=== PATIENT | male | born 1960 | race Caucasian/White ===

== ENCOUNTER → 2021-01-18 11:05 | Outpatient (BNVA) | payer MEDICARE, SELFPAY | PROVIDERS: Family Provider Nurse Practitioner Family; Visit Provider Nurse Practitioner Family | DX: C81.99 Hodgkin lymphoma, unspecified, extranodal and solid organ sites (principal); J30.89 Other allergic rhinitis; E55.9 Vitamin D deficiency, unspecified; Z12.5 Encounter for screening for malignant neoplasm of prostate; Z13.6 Encounter for screening for cardiovascular disorders; Z79.899 Other long term (current) drug therapy | CPT/HCPCS: 80053; 80061; 81003; 82306; 83036; 84443; 85025; G0103 ==

== ENCOUNTER 2021-02-02 08:30 | Outpatient (CLI) | payer MEDICARE, SELFPAY ==
--- NOTE | 2021-02-02 13:16 | ONC FU_ITS ---
Dr. Mcpherson follow up note Patient: Ramirez Parham Unit #: [id number]: 1960 Dicatated By: Luna Mcpherson M.D.Date of Visit:Feb 02, 2021 Onc Med Follow-up/Prog Note History of Present Illness: This is a 60 year-old man with non Hodgkin's lymphoma, specifically T-cell rich B-cell lymphoma, stage IVB. His history includes traumatic right tibial fracture in June 2013, at which time he had experienced several months of night sweats and weight loss. In December of 2013 he was admitted with MSSA septic knee arthritis and acute renal failure requiring removal of the prior hardware with debridement. During that admission, he was noted to have a progressive leukopenia with ANC 800, moderate anemia, and mild thrombocytopenia. His physical examination showed diffuse adenopathy and significant splenomegaly. A CT of the chest, abdomen, and pelvis on 12/19/2013 confirmed diffuse adenopathy in bilateral hilar, mediastinal, left supraclavicular, retroperitoneal, quoc hepatis, right iliac chain, and mesenteric adenopathy up to 4.7 cm. He had a massive splenomegaly at 25 cm in height and intrahepatic periportal edema without distinct lesions. He was first seen while inpatient. Bone marrow biopsy on showed 100% packed with mononuclear cells. The preliminary impression was Hodgkin's lymphoma versus T-cell rich B-cell lymphoma, but final impression was consistent with lymphocyte predominant Hodgkin's lymphoma. On 12/29/2013 he underwent a cervical mediastinoscopy. A level IV and level VII lymph nodes revealed nodular lymphocyte predominant Hodgkin's lymphoma, with a large neoplastic CD20 positive B cells in the background of T cells rosettes, follicular dendritic cells and numerous histiocytes. Neutrophils were only 4% of bone marrow cell differential, moderate reticulin fibrosis. He had unfavorable prognosis with a high IPS score of 6 due to decreased albumin, anemia, male gender, age, stage, and low lymphocyte count. Metabolically, he had an evidence of spontaneous tumor lysis and hypercalcemia. He received allopurinol and Rasburicase. He required pamidronate, renal function improved with creatinine 1.2 mg/dL. MUGA scan on 01/04/2014 with EF 54-55%. Port-A-Cath was placed. ESR 23. LDH increased to 245. Hepatitis screen was negative. Because of aggressive presentation, I did not recommend ABVD regimen. Instead, he received R- CHOP regimen for 6 cycles 01/07/14 - 05/09/14. With his first cycle, the neutrophils and platelet count improved. Restaging PET/CT after 3 cycles of chemotherapy on 03/12/14 showed a near-complete response with the only abnormality being FDG negative splenomegaly. Treatment continued despite of severe neutropenia, ANC 100. The repeat bone marrow biopsy on 04/13/1914 was hypercellular at 70%. There was no lymphomatous involvement. There was very limited dyserythropoiesis and megakaryocytic dyspoiesis. Iron was present but decreased. Flow cytometry was unrevealing. Cytogenetics and FISH panel MDS were normal. The etiology of the neutropenia remained unclear. The re-staging PET/CT after 6 cycles of R-CHOP regimen on 06/04/2014 showed FDG uptake in L2 vertebral body with SUV of 4.2, concerning for a reactivated malignancy. MRI of the L-spine on 06/15/2014 showed subtle changes in L2 vertebral body concerning for metastatic disease. He eventually underwent evaluation at [facility]. His original pathology was reviewed and changed into T-cell rich B-cell lymphoma. He underwent an L2 biopsy twice, consensus diagnosis was reactivated T-cell rich B cell lymphoma. Repeat PET/CT on 08/13/13 showed an additional focus developing in the right femur. He then received 3 cycles of salvage R-ICE regimen 09/12/14 - 10/31/14. His treatment was complicated with severe hematological toxicities, and sepsis with pneumonia. Restaging PET CT after 2 cycles showed complete response. The patient underwent autologous stem cells transplantation at [facility] in December 2014. Reportedly it was complicated with viral pneumonia, bacteremia, C. difficile colitis. PET/CT on 04/01/2015 showed complete response. INTERIM HISTORY: On 01/26/2016 he was found to have left lower lobe pneumonia, confirmed by chest x-ray. Repeat CT of the abdomen and pelvis on 01/30/2016 showed left lower lobe pneumonia, stable mild spleen enlargement at 14.5 cm and absent adenopathy. Echocardiogram showed borderline EF at 50%. He completed a course of antibiotics with Levaquin. At his followup visit with Dr. Howard on 02/09/2016 his fevers had defervesced, but he continued to cough quite a bit, and he continued to feel very tired. CT PET scan done in [place] on 03/28/2017.Showed no evidence of disease Came for follow-up, denies any specific complaints, no fever chills, no nausea or vomiting, no diarrhea constipation, no night sweats, no weight loss, no recurrent fever, no peripheral lymphadenopathy, no abdominal fullness, appetite is good overall feeling well. Patient lost follow-up since his last visit on December 24, 2019., As per patient he had CT scan of chest abdomen pelvis done in June 2018 and got report from his PMD and it was normal so he decided not to come back and tell him to go to [facility] for follow-up and now just decided to come back for follow-up but has no complaints or symptoms. Medications: Cetirizine HCl 1 (10 mg) Tablet Oral daily, multvitamin 1 Tablet daily, Paxil 1 (30 mg) Tablet Oral daily Allergies: PCN and Vancomycin HCl. Review of Systems: Review of Systems is not available for this patient. Vital Signs: Performed on Feb 02, 2021 09:00 Height - 69.00 in Weight - 219.8 lbs (HIGH) BSA - 2.15 sq.m BMI - 32.46 (HIGH) Temperature - 96.8 F (LOW) Pulse - 74 /min Respiration - 18 /min BP - 129/80 mm(hg) O2 Sat - 97 % Pain - 0 Fatigue - 0 Performance Status: 0 - Fully active, able to carry on all predisease activities without restrictions. (ECOG) Physical Examination: ENMT - No mouth sores, no thrush, no jaundice, no cervical or axillary lymphadenopathy, Respiratory - Lungs are clear to auscultation, Cardiovascular - Regular rate and rhythm of heart, Abdomen - Soft, bowel sounds present, Extremities - No visible edema. Lab/Imaging: Test performed on Jan 18, 2021 11:05 Cholesterol, Total 180 mg/dL Sodium 142 mmol/L TSH 2.19 uIU/mL Vitamin D (25-Hydroxy), Total 32 ng/mL Potassium 4.2 mmol/L Triglycerides 152 mg/dL Chloride 106 mmol/L LDL Cholesterol 119 mg/dL CO2 24 mmol/L Anion Gap 16.2 HDL Cholesterol 31 mg/dL BUN 14 mg/dL Cholesterol/HDL Ratio 5.81 Creatinine 1.1 mg/dL LDL / HDL Ratio 3.84 Cr Clearance (Est) 96.19 mL/min eGFR 68.1 mL/min Glucose 103 mg/dL Osmolality - Calculated 295 mOsm/kg Calcium 8.4 mg/dL Protein, Total 5.4 g/dL Albumin 4.4 g/dL Globulin 1.0 g/dL Bilirubin, Total 0.5 mg/dL ALT (SGPT) 20 Units/L AST (SGOT) 16 Units/L Alkaline Phosphatase 113 IU/L WBC 5.4 10^3/uL RBC 4.59 10^6/uL HGB 14.1 g/dL HCT 41.8 % MCV 91.1 fl MCH 30.7 pg MCHC 33.7 g/dL RDW 13.0 % Platelet Count 137 10^3/uL MPV 9.9 fl Neutrophils 3.49 10^3/uL Lymphocytes 1.3 10^3/uL Monocytes 0.5 10^3/uL Eosinophils 0.1 10^3/uL Basophils 0.0 10^3/uL Neutrophil % 64.1 % Lymphocyte % 23.3 % Monocyte % 9.2 % Eosinophil % 2.6 % Basophils % 0.4 % NRBC 0.0 /100 WBC NRBC % 0.0 % PSA 2.15 ng/mL Impression: 1. Patient with T cell rich B cell Lymphoma, stage IVB. He had diffuse adenopathy, massive splenomegaly and bone marrow involvement at diagnosis in December 2013 (initially thought to be Hodgkin's disease). He had significant baseline pancytopenia with severe neutropenia, hypercalcemia, spontaneous tumor lysis and renal failure on presentation. He had underlying baseline cyclic/ immune mediated neutropenia. 2. He received 6 cycles of R- CHOP chemotherapy, 01/07/14 - 05/09/14, with decrease in splenomegaly and normalization of the renal function. PET/ CT after 3 cycles on 03/12/14 showed near complete response, with residual FDG negative splenomegaly. Restaging PET/CT after 6 cycles of the treatment on 06/03/14 with focal re- activation of malignancy at L2 vertebral body. Repeat targeted biopsy of L2 lesion, showed recurrent T cell rich B cell lymphoma. 3. Salvage R-ICE for 3 cycles delivered 09/12/14 - 10/31/14. PET/CT with complete response after 2 cycles. 4. He then underwent an autologous stem cell transplantation with BEAM conditioning at [facility] on 12/29/14. Reportedly the procedure was complicated with viral pneumonia, bacteremia, and C. diff. colitis. Restaging PET/CT in March 2015 showed complete response. Recent restaging CT on 10/20/[address] abdomen/pelvis on 01/30/16 were without evidence of recurrence. CT PET scan done on 03/28/2017 at [facility] showed stable with no evidence of recurrence Mild thrombocytopenia etiology unclear Plan: Discussed with patient regarding his labs from January 18, 2021 white blood count 5.4 hemoglobin 14.1 hematocrit 41.8 platelets 137,000 with a normal differential CMP within normal limits Clinically, patient doing well with no B signs symptoms no other symptom suggestive of recurrence of disease, as follow-up labs CBC CMP is within normal range, on exam there is no evidence of peripheral lymphadenopathy or organomegaly , overall patient is feeling well, joint quality of life., Will monitor, he will return to clinic in 6 months with CBC CMP and LDH, patient was advised in case he has any new signs symptoms like recurrent fevers, unintentional weight loss, drenching night sweating, peripheral lymphadenopathy or abdominal fullness he need to call us otherwise return to clinic in 6 months and will also obtain his CT scan of chest abdomen pelvis done in June 2018 report and review Signed By: Lnua Mcpherson M.D. <<Signature on File>>
== END 2021-02-02 08:31 | disposition home or self-care (01) ==
LOC: ONCMED 08:33
PROVIDERS: Family Provider Nurse Practitioner Family; Visit Provider Internal Medicine Hematology & Oncology
DX: C83.30 Diffuse large B-cell lymphoma, unspecified site (principal)
CPT/HCPCS: 99214

== ENCOUNTER → 2021-08-13 14:15 | Outpatient (BNVA) | payer MEDICARE, SELFPAY | PROVIDERS: Family Provider Nurse Practitioner Family; PCP Nurse Practitioner Family; Visit Provider Family Medicine | DX: J22 Unspecified acute lower respiratory infection (principal) | CPT/HCPCS: 87400; 87635 ==

== ENCOUNTER 2022-02-08 07:48 | Oncology outpatient (recurring) (ONCR) | payer MEDICARE, SELFPAY ==
[2022-02-08 08:10] LABS: Eosinophils # 0.2 10^3/uL (0.0-0.8); Monocytes # 0.5 10^3/uL (0.2-0.9); Nucleated Red Blood Cells % 0 %
[2022-02-08 08:11] LABS: Basophils % 0.3 %; Eosinophils % 2.8 %; Hemoglobin 15.8 g/dL (11.7-16.6); Lymphocytes # 1.6 10^3/uL (0.8-4.8); Lymphocytes % 26.3 %; Mean Corpuscular HGB Conc 35.1 g/dL (30.0-36.0); Mean Corpuscular Hemoglobin 30.4 pg (28.0-34.0); Mean Corpuscular Volume 86.5 fl (80-94); Mean Platelet Volume 9.2 fL (7.4-10.4); Monocytes % 8.6 %; Neutrophils # 3.75 10^3/uL (1.8-7.7); Neutrophils % 61.7 %; Platelet Count 137 10^3/cmm (130-400); Red Cell Distribution Width 12.8 % (12.1-15.1); White Blood Count 6.1 10^3/uL (4.0-10.0)
[2022-02-08 08:25] LABS: Alanine Aminotransferase 24 U/L (0-41); Albumin Level 4.7 g/dL (3.5-5.2); Alkaline Phosphatase 109 IU/L (40-130); Anion Gap 14.1 (5-19); Aspartate Amino Transferase 19 U/L (0-40); Blood Urea Nitrogen 25 mg/dL (8-23); Carbon Dioxide 25 mmol/L (22-29); Chloride 103 mmol/L (98-107); Globulin 1.8 g/dL (1.3-4.6); Glomerular Filtration Rate 55.8 mL/min (90-130); Glucose 120 mg/dL (65-115); Lactate Dehydrogenase 190 U/L (135-225); Osmolality Calculated 292 mOsm/kg (285-295); Potassium 4.1 mmol/L (3.5-5.1); Sodium 138 mmol/L (136-145); Total Bilirubin 0.5 mg/dL (0.15-1.2); Total Protein 6.5 g/dL (6.6-8.7)
== END 2022-03-10 23:59 | disposition home or self-care (01) ==
LOC: ONCMED 07:50
PROVIDERS: PCP Nurse Practitioner Family; Visit Provider Internal Medicine Hematology & Oncology
DX: Z08 Encounter for follow-up examination after completed treatment for malignant neoplasm (principal); Z85.72 Personal history of non-Hodgkin lymphomas; Z92.21 Personal history of antineoplastic chemotherapy; Z92.3 Personal history of irradiation
CPT/HCPCS: 36415; 80053; 83615; 85025; G0463

== ENCOUNTER 2022-08-16 08:17 | Oncology outpatient (recurring) (ONCR) | payer MEDICARE, SELFPAY ==
[2022-08-16 08:40] LABS: Basophils % 0.7 %; Eosinophils # 0.1 10^3/uL (0.0-0.8); Hematocrit 46.8 % (42.0-52.0); Hemoglobin 15.5 g/dL (11.7-16.6); Lymphocytes # 1.4 10^3/uL (0.8-4.8); Lymphocytes % 24.2 %; Mean Corpuscular HGB Conc 33.1 g/dL (30.0-36.0); Mean Corpuscular Hemoglobin 29.9 pg (28.0-34.0); Mean Corpuscular Volume 90.2 fl (80-94); Mean Platelet Volume 8.7 fL (7.4-10.4); Monocytes # 0.5 10^3/uL (0.2-0.9); Monocytes % 8.2 %; Neutrophils # 3.75 10^3/uL (1.8-7.7); Neutrophils % 63.9 %; Nucleated Red Blood Cells % 0 %; Platelet Count 152 10^3/cmm (130-400); Red Blood Count 5.19 10^6/uL (4.1-5.3); Red Cell Distribution Width 12.7 % (12.1-15.1); White Blood Count 5.9 10^3/uL (4.0-10.0)
[2022-08-16 09:09] LABS: Alanine Aminotransferase 28 U/L (0-41); Albumin Level 4.7 g/dL (3.5-5.2); Alkaline Phosphatase 122 U/L (40-130); Anion Gap 12.5 (5-19); Aspartate Amino Transferase 18 U/L (0-40); Blood Urea Nitrogen 19 mg/dL (8-23); Carbon Dioxide 26 mmol/L (22-29); Chloride 103 mmol/L (98-107); Globulin 1.7 g/dL (1.3-4.6); Glomerular Filtration Rate 61.1 mL/min (90-130); Glucose 137 mg/dL (65-115); Lactate Dehydrogenase 188 U/L (135-225); Osmolality Calculated 288 mOsm/kg (285-295); Potassium 4.5 mmol/L (3.5-5.1); Sodium 137 mmol/L (136-145); Total Bilirubin 0.4 mg/dL (0.15-1.2); Total Protein 6.4 g/dL (6.6-8.7)
== END 2022-09-10 23:59 | disposition home or self-care (01) ==
PROVIDERS: PCP Nurse Practitioner Family; Visit Provider Internal Medicine Hematology & Oncology
DX: C85.10 Unspecified B-cell lymphoma, unspecified site (principal); Z92.21 Personal history of antineoplastic chemotherapy
CPT/HCPCS: 36415; 80053; 83615; 85025; 99214

== ENCOUNTER → 2022-09-24 10:09 | Outpatient (BNVA) | payer MEDICARE, SELFPAY | PROVIDERS: PCP Nurse Practitioner Family; Visit Provider Nurse Practitioner | DX: J40 Bronchitis, not specified as acute or chronic (principal); J34.89 Other specified disorders of nose and nasal sinuses | CPT/HCPCS: 71046 ==

== ENCOUNTER 2023-08-28 11:03 | Outpatient (CLI) | payer MEDICARE, SELFPAY ==
--- NOTE | 2023-08-28 12:00 | CT_ITS ---
WS: [id number] CT CHEST, ABDOMEN AND PELVIS WITH CONTRAST HISTORY: Follow-up lymphoma. TECHNIQUE: Contiguous 5 mm axial imaging performed through the chest, abdomen and pelvis with IV cont rast, oral contrast has been provided. Coronal and sagittal reformats chest. Coronal and sagittal ref ormats through the abdomen and pelvis. All CT scans at [facility] use at least one of these d ose optimization techniques: automated exposure control; mA and/or kV adjustment per patient size (in cludes targeted exams where dose is matched to clinical indication); or iterative reconstruction. CONTRAST: Omnipaque 350; 100 mL IV. DLP: 1283.16 mGy.cm COMPARISON: 06/18/[address]: Increase in size and number of the mediastinal and hilar lymph nodes since 06/18/2018. There is a new 0.9 cm lymph node inferior LEFT neck. Previously described lymph nodes at the hilar regions have increased in size. The largest hina complex 3.0 x 1.7 cm at the RIGHT hilum. There is a interl obar lymph node with a maximum diameter of 1.8 cm. LEFT hilar lymph node measures 1.8 x 1.5 cm. Incre asing hina burden adjacent to the inferior LEFT paratracheal region and LEFT hilum. Smaller subcarin al lymph nodes. Lungs are clear. No pneumonia. No mass or nodule. No pericardial or pleural effusions. There is incre ased soft tissue over the LEFT atrium but this is probably due to admixing of blood and contrast. Thi s does not persist on the more delayed imaging through the lower thorax. Abdomen CT: Normal liver and spleen. Spleen measures 12.8 cm in length. Normal portal vein and gallbl adder. No adrenal mass. Normal pancreas. No renal obstruction. Simple RIGHT renal cyst 5.3 x 6.2 cm f rom the lower pole. Stomach is well distended. No small bowel obstruction. Moderate constipation. There are few scattered distal colonic diverticula. New 1.4 cm lymph node near the lesser curvature of the stomach. Precaval lymph node 1.7 cm has increa sed in size. There are a few additional small central mesenteric and retroperitoneal lymph nodes whic h are less than a centimeter. Pelvic CT: No free fluid in the pelvis. No adenopathy. Nondistended urinary bladder. There is diffuse wall thickening which is likely due to under distention or mild outlet obstruction. 6 mm sclerotic focus in the LEFT sacrum has slightly increased in size. RIGHT lateral sclerotic focus in L3 has increased in size. IMPRESSION: 1. Increase in size and number of the mediastinal and hilar lymph nodes since 06/18/2018. The largest lymph node cluster at the RIGHT hilum measures 3.0 x 1.7 cm. 2. New 1.4 cm lymph node at the lesser curve at the summer and precaval lymph node measuring 1.7 cm. 3. Reevaluate for possible recurrent lymphoma. 4. No splenomegaly. 5. No adrenal or hepatic lesions. 6. Small sclerotic foci in the LEFT sacrum and L3 have slightly increased in size since 2018. The si gnificance of this is uncertain. May be mild enlargement of small bone islands.
[2023-08-28 12:28] LABS: Blood Urea Nitrogen 19 mg/dL (8-23); Glomerular Filtration Rate 38.2 mL/min (90-130)
[2023-08-28] MEDS: iohexol 350 mg/mL 500 mL Btl (per mL) PO (12:31)
[2023-08-28] MEDS: iohexol 350 mg/mL 500 mL Btl (per mL) IV (12:39)
== END 2023-08-28 11:04 | disposition home or self-care (01) ==
LOC: RAD 11:03
PROVIDERS: PCP Nurse Practitioner Family; Visit Provider Nurse Practitioner Family
DX: C85.10 Unspecified B-cell lymphoma, unspecified site (principal); M89.9 Disorder of bone, unspecified
CPT/HCPCS: 71260; 74177; 82565; 84520; Q9967

== ENCOUNTER 2023-09-08 08:42 | Oncology outpatient (recurring) (ONCR) | payer MEDICARE, SELFPAY ==
[2023-09-08 09:23] VITALS: BP 131/74; PULSE 68; TEMP 36.2; O2SAT 95
[2023-09-08 09:31] LABS: Basophils % 0.4 %; Eosinophils # 0.1 10^3/uL (0.0-0.8); Eosinophils % 2.4 %; Hematocrit 43.9 % (37-53); Lymphocytes # 1.5 10^3/uL (0.8-4.8); Lymphocytes % 27.5 %; Mean Corpuscular HGB Conc 34.6 g/dL (30-55); Mean Corpuscular Hemoglobin 30.4 pg (27-33); Mean Corpuscular Volume 87.8 fl (82-101); Monocytes # 0.4 10^3/uL (0.2-0.9); Monocytes % 8.1 %; Neutrophils # 3.25 10^3/uL (1.8-7.7); Neutrophils % 61.2 %; Nucleated Red Blood Cells % 0 %; Platelet Count 140 10^3/cmm (157-399); Red Cell Distribution Width 12.9 % (12.1-15.1); White Blood Count 5.31 10^3/uL (3.29-11.43)
[2023-09-08 09:52] LABS: Alanine Aminotransferase 28 U/L (0-41); Albumin Level 4.2 g/dL (3.5-5.2); Alkaline Phosphatase 114 U/L (40-130); Anion Gap 15.1 (5-19); Aspartate Amino Transferase 23 U/L (0-40); Blood Urea Nitrogen 21 mg/dL (8-23); Calcium 9.2 mg/dL (8.5-10.5); Carbon Dioxide 24 mmol/L (22-29); Chloride 104 mmol/L (98-107); Glucose 122 mg/dL (65-115); Lactate Dehydrogenase 190 U/L (135-225); Osmolality Calculated 292 mOsm/kg (285-295); Potassium 4.1 mmol/L (3.5-5.1); Sodium 139 mmol/L (136-145); Total Bilirubin 0.4 mg/dL (0.15-1.2); Total Protein 6.2 g/dL (6.6-8.7)
== END 2023-09-10 23:59 | disposition home or self-care (01) ==
PROVIDERS: Internal Medicine Medical Oncology; PCP Nurse Practitioner Family; Visit Provider Internal Medicine Hematology & Oncology
DX: C85.10 Unspecified B-cell lymphoma, unspecified site (principal); Z92.21 Personal history of antineoplastic chemotherapy
CPT/HCPCS: 36415; 80053; 83615; 85025; 99214

== ENCOUNTER → 2023-10-13 16:08 | Outpatient (BNVA) | payer MEDICARE, SELFPAY | PROVIDERS: PCP Nurse Practitioner Family; Visit Provider Internal Medicine Pulmonary Disease | DX: R06.02 Shortness of breath; R59.0 Localized enlarged lymph nodes; R06.09 Other forms of dyspnea; C81.99 Hodgkin lymphoma, unspecified, extranodal and solid organ sites | CPT/HCPCS: 36415; 82785; 86003; 99204 ==

== ENCOUNTER 2023-10-21 07:15 | Day surgery (SDC) | payer MEDICARE, SELFPAY ==
[2023-10-21] VITALS (10 sets, daily range): BP systolic 116–143; BP diastolic 59–88; PULSE 71–87; RESP 16–18; TEMP 36.1–36.2; O2SAT 92–97; BMI 27.2
[2023-10-21] MEDS: sodium chloride 0.9% 1,000 ML 30 ML IV (07:31)
--- NOTE | 2023-10-21 08:03 | ANES.PREANE2 ---
Pre-Anesthetic Assessment Height/Weight: Height 1.78 m Weight 86.183 kg Temp Pulse Resp BP Pulse Ox O2 Del Method 97 F L 75 16 116/76 97 Room Air 10/21/23 07:26 10/21/23 07:26 10/21/23 07:26 10/21/23 07:26 10/21/23 07:26 10/21/23 07:26 Operation Date: 10/21/23 09:00 Proposed Procedures p BRONCH, EBUS, 29444, 23647, 14834, 47632, 27769, 58181, 91837, 68484, 29456 R59.0(Not Applicable) - Caleb Malik MD s Ebus(Not Applicable) - Caleb TeixeirarMD Familial anesthetic complications: None Was Beta Rocael taken within 24 hours: N/A Was Clonidine taken within 24 hours: N/A Last intake: Intake Last Liquid Date 10/20/23 Last Liquid Time 23:30 Last Solid Date 10/20/23 Last Solid Time 18:00 Social No alcohol and No tobacco Exam alert, oriented x 3, clear to auscultation bilaterally and regular rate & rhythm Airway Mallampati: Class IV Dentition: false Musc/skel Non-hodgkin's lymphoma Anesthetic Plan ASA status: 3 Anesthesia: General Risk of > 500 ml blood loss (7ml/kg in children): No Medications/Allergies Home Medications Medication Instructions Recorded Confirmed Last Taken Type ascorbic acid (vitamin C) 500 mg 500 mg PO DAILY 02/08/22 10/21/23 10/21/23 History capsule zinc 50 mg tablet 50 mg PO DAILY 02/08/22 10/21/23 10/21/23 History sildenafil 50 mg tablet (Viagra) 50 mg PO DAILY PRN sexual activity 08/13/23 10/16/23 3 Weeks Ago Rx #7 tabs ~09/25/23 albuterol sulfate 90 mcg/actuation 2 puff inhalation Q4H PRN 10/13/23 10/16/23 Unknown Rx aerosol inhaler (ProAir HFA) shortness of breath or wheezing #8.5 grams budesonide-formoterol HFA 80 2 puff inhalation BID #10.2 grams 10/13/23 10/16/23 Unknown Rx mcg-4.5 mcg/actuation aerosol inhaler (Symbicort) omega-3 fatty acids 1,000 mg PO DAILY 10/16/23 10/21/23 10/21/23 History paroxetine HCl 30 mg tablet 30 mg PO DAILY 10/16/23 10/21/23 10/21/23 History vitamin B complex 1 tab PO DAILY 10/16/23 10/21/23 10/21/23 History Allergies Allergy/AdvReac Type Severity Reaction Status Date / Time Penicillins Allergy Severe rash Verified 10/13/23 15:07 Current Medications Generic Name Dose Route Start Last Admin Trade Name Chester PRN Reason Stop Dose Admin Sodium Chloride 1,000 mls @ 30 mls/hr 10/21/23 07:30 10/21/23 07:31 Sodium Chloride 0.9% IV 10/22/23 07:29 30 mls/hr .Q24H THELMA Administration PFSH Anesthesia Medical History History of septic arthritis Erectile dysfunction Anxiety B-cell lymphoma Vitamin D deficiency H/O tularemia Environmental and seasonal allergies Depression Surgical History S/P ORIF (open reduction internal fixation) fracture ORIF Rt Tibial Plateau Family History Other Cancer Lung disease Denies family history of Diabetes CAD (coronary artery disease) Clotting disorder Dementia Hyperlipidemia Psychiatric illness Chronic kidney disease (CKD) Suicide Anesthesia complication Bleeding disorder Hypertension Stroke Social History Smoking and tobacco/nicotine status: never used tobacco/nicotine Second hand smoke exposure: No Substance/Drug Use: never Data Anesthesia Cardiac Studies: No Data to Display
--- NOTE | 2023-10-21 08:38 | W.PM.OPSUD ---
Surgery/Procedure H&P Update DATE OF PROCEDURE: October 21, 2023 DATE H&P PERFORMED: 10/13/23 H&P UPDATE INFORMATION: I have reviewed H&P completed within last 30 days, I have examined patient prior to procedure and No changes to prior documentation CHANGES TO PREVIOUS DOCUMENTATION: none PREOP DIAGNOSIS: pet active lymphnodes rule out recurrence of lymphoma PRIMARY INDICATION FOR PROCEDURE: pet active lymphnodes rule out recurrence of lymphoma PLANNED PROCEDURE: Operation Date: 10/21/23 09:00 Proposed Procedures p BRONCH, EBUS, 75255, 03613, 61839, 42847, 92134, 85904, 80537, 99180, 52706 R59.0(Not Applicable) - Caleb Malik MD s Ebus(Not Applicable) - Caleb Malik MD
[2023-10-21 09:28] LABS: Apprearance, Bronch Wash Cloudy (CLEAR); Color, Bronc Wash Colorless; Cyto Order Verification Order Verified
[2023-10-21 10:28] LABS: PATH Referral Yes; Total Cells Counted Bronch 200
--- NOTE | 2023-10-21 10:40 | P.OP_ITS ---
Operative Report Date of procedure: October 21, 2023 Surgeon: Caleb Malik MD Brief History: Mr. Ramirez Parham is a 63-year-old male with past medical history of T-cell rich B-cell lymphoma, stage IV. referred by Sukhdeep for ?? recurrence of Hodgkin lymphoma. Patient was diagnosed with Hodgkin's lymphoma he completed 6 cycles from 01/07/2014 through 05/09/2014. His restaging PET/CT after 3 cycles had shown a near complete response. He then underwent evaluation at [facility], at which point review of pathology was felt to be consistent with T-cell rich B- cell lymphoma. Biopsy of the L2 vertebral body showed reactivated T-cell rich B-cell lymphoma. His further treatment included 3 cycles of R-ICE salvage chemotherapy, completed in October 2014 followed by autologous stem cell transplant in December 2014. His restaging PET/CT on 04/01/2015 showed complete response. He then continued expectant management. As of his follow-up visit here in August 2022 there had been no evidence of recurrence of the lymphoma. Since 2014-he appears to be doing well clinically. However, as his recent surveillance CT scans 09/07/2023 showed some increase in mediastinal/hilar adenopathy and there also was a slight increase in several sclerotic bone lesions. He underwent PET CT scan on 10/01/2023 which showed nonspecific activity in multiple lymph nodes involving the neck, chest and retroperitoneum with SUV maximum in the LV hilum 4.4 and in the right hilum 4.83. Maximal activity mediastinal 3.96. There is low-level activity azygoesophageal recess. Oncology discussed with interventional radiology-however all these lesions are difficult to access through interventional radiology. Hence patient is referred to pulmonary service for possible endobronchial ultrasound-guided hilar/mediastinal lymph nodes to rule out recurrence of low- grade lymphoma. Today patient is scheduled for endobronchial ultrasound-guided biopsies of hilar/mediastinal active lymph nodes. Procedure: Procedure: Dx Bronchoscope w/BAL Bronchoscopy w/ therapeutic aspiration of the tracheobronchial tree (clearance of airway secretions, removal of mucus plugs) EBUS Sampling >3 nodes Indication: PET active mediastinal/hilar lymph nodes-rule out Malignancy Anesthesia: General anesthesia. Local anesthesia: The jeremy in the right and left mainstem bronchi were anesthetized with 1% lidocaine, 3 mL. Description of the procedure: The procedure was explained to the patient and the consent was obtained. The patient was brought to the OR. The patient underwent induction for general anesthesia and endotracheal tube was placed. The bronchoscope was advanced through the ET tube into the trachea. Tracheal mucosa appeared normal, no endotracheal lesion was seen. The jeremy was sharp. 1 mL each of 1% lidocaine was instilled in the trachea the right and left mainstem bronchi for local anesthesia. There were thick mucus secretions which were suctioned right away. In a systematic manner bilateral bronchial tree was then examined. The bronchoscope was then introduced into the right mainstem bronchus. The right upper lobe, right middle lobe and right lower lobe bronchi were examined up to the third subsegmental level and no abnormalities were identified. The mucosa appeared normal with no endobronchial lesions, active bleeding or mucous plugs.There were Mucous secretions which were suctioned right away. The bronchoscope was advanced into the left mainstem bronchus. The left upper lobe, and lingula were examined up to the third subsegmental level and no abnormalities were identified. Mucosa of left side tracheal bronchial tree appeared normal with no endobronchial lesion. There were clear secretions which were suctioned right away. Bronchoalveolar lavage was taken from right middle lobe. Bronchoscope was retracted and linear endobronchial Ultrasound (EBUS) was introduced. An EBUS exam[[id number] vs [id number]] was performed: - Stations 4L, 11 L, 7, 11 R were enlarged > 5mm and sampled in that order. - Stations 4R, 10 R, 10 L were also scanned but <5mm and thus did not meet criteria for sampling. Level 4L station was identified with the EBUS scope at the lateral LMSB and 4 passes were made using a 19 G Olympus TBNA needle. Level 11L station was identified with the EBUS scope at the LLL/L hilum and 4 passes were made using a 19 G Olympus TBNA needle. Level 7 station was identified with the EBUS scope at the medial LMSB/RMSB and 4 passes were made using a 19 G Olympus TBNA needle. Level 11R station was identified with the EBUS scope at the RBI/R hilum and 4 passes were made using a 19 G Olympus TBNA needle. Additional samples were taken from the above lymph nodes and collected into RPMI media as ``mediastinal lymph nodes?? for consideration of lymphoma Rapid onsite path evaluation (IDALIA) was not utilized for this case. Following completion of all diagnostic and therapeutic procedures, hemostasis was verified. The scope was removed and procedure concluded. Samples: 1. Bronchoalveolar lavage was performed after wedging the bronchoscope into the medial segment of right middle lobe. 30 mL of saline was instilled, fluid return was 13 mL. Bronchoalveolar lavage specimen was sent for cell count and differential, gram stain and culture, cytology, fungal culture B. EBUS guided Fine-needle aspiration biopsies were taken from station 4L, station 11 L, station 7 and station 11. 1. Total of 4 passes were made using needle aspiration from station 4L; material was placed in formalin; 2 passes in RPMI 2. Total of 4 passes were made using needle aspiration from station 11 L; material was placed in formalin; 2 passes in RPMI 3. Total of 4 passes were made using needle aspiration from station 7; material was placed in formalin, 2 passes were placed in RPMI 4. Total of 4 passes were made using needle aspiration from station 11 R: all the material was placed in formalin and sent for histopathology Complications: None.The patient was extubated and brought to the PACU in stable condition. Disposition: Patient can be discharged home in stable condition. Pt is aware that I am going to call them to update final biopsy results once available. Related Problem List Diagnoses (1) Hodgkin lymphoma of extranodal or solid organ site: (2) Hilar adenopathy:
[2023-10-21] MEDS: lidocaine 1% INJ 10 mL (per mL) XX (10:41)
--- NOTE | 2023-10-21 11:16 | XRR_ITS ---
PROCEDURE INFORMATION: Exam: XR Chest Exam date and time: 10/21/2023 10:26 AM Age: 63 years old Clinical indication: Cough; Prior surgery; Surgery date: Post-operative (0-2 days); Surgery type: Bronch; Additional info: Post ebus, in gi lab pre room 1 TECHNIQUE: Imaging protocol: Radiologic exam of the chest. Views: 1 view. COMPARISON: CT chest abdpel w/*[id number] 08/28/2023 12:35 PM FINDINGS: Lungs: Unremarkable. No consolidation. Pleural spaces: Unremarkable. No pleural effusion. No pneumothorax. Heart/Mediastinum: The heart size is not well assessed. Bones/joints: Unremarkable. XR/XR chest 1V portable [id number] IMPRESSION: No evidence of acute pulmonary process.
--- NOTE | 2023-10-21 11:45 | ANE.PACU2 ---
Inpatient post-anesthesia follow up: Airway intact: Yes Vital signs: Temperature 97.2 F Pulse Rate 72 Respiratory Rate 18 Blood Pressure 125/75 Pulse Oximetry 94 Oxygen Delivery Me thod Room Air Oxygen Flow Rate Fraction of Inspir ed Oxygen Hydration adequate: Yes Nausea and vomiting: No Pain level: 1 Mental status: Baseline
[2023-10-22 15:20] LABS: Lymphoma Profile (BBPL) See Report
== END 2023-10-21 11:48 | disposition home or self-care (01) ==
PROVIDERS: PCP Nurse Practitioner Family; Visit Provider Internal Medicine Pulmonary Disease
PROC: 0BJ08ZZ Inspection of Tracheobronchial Tree, Via Natural or Artificial Opening Endoscopic (ICD-10-PCS; CPT 31622; principal; 2023-10-21 09:00)
PROC: BB4BZZZ Ultrasonography of Pleura (ICD-10-PCS; 2023-10-21 09:00)
DX: R59.0 Localized enlarged lymph nodes (principal); R06.09 Other forms of dyspnea; C81.99 Hodgkin lymphoma, unspecified, extranodal and solid organ sites
CPT/HCPCS: 31624; 31645; 31653; 71045; 80503; 87070; 87102; 87176; 87205; 87206; 88112; 88184; 88185; 88305; 88342; 89050; J1100; J2405; J2704; J2710; J3010; J3490; J7030

== ENCOUNTER 2023-11-18 06:34 | Outpatient (CLI) | payer MEDICARE, SELFPAY | END 2023-11-18 06:35 | disposition home or self-care (01) | LOC: RT 06:34 | PROVIDERS: PCP Nurse Practitioner Family; Visit Provider Internal Medicine Pulmonary Disease | DX: R06.02 Shortness of breath (principal) | CPT/HCPCS: 94060; 94618; 94726; 94729 ==

== ENCOUNTER 2024-01-30 06:43 | Oncology outpatient (recurring) (ONCR) | payer MEDICARE, SELFPAY ==
--- NOTE | 2024-01-30 08:00 | CTR_ITS ---
PROCEDURE INFORMATION: Exam: CT Chest With Contrast; Diagnostic Exam date and time: 01/30/2024 9:14 AM Age: 63 years old Clinical indication: Condition or disease; Prior surgery; Surgery date: 6+ months; Surgery type: RT leg; Patient HX: B-cell lymphoma chemo ending approx 2018 TECHNIQUE: Imaging protocol: Diagnostic computed tomography of the chest with contrast. Radiation optimization: All CT scans at this facility use at least one of these dose optimization techniques: automated exposure control; mA and/or kV adjustment per patient size (includes targeted exams where dose is matched to clinical indication); or iterative reconstruction. Contrast material: OMNI 350; Contrast volume: 95 ml; Contrast route: INTRAVENOUS (IV); COMPARISON: CT chest abdpel w/*[id number] 08/28/2023 12:35 PM RADIATION DOSE METRICS: Total DLP (mGy-cm): 1221.98 FINDINGS: Lungs: There are calcified granulomas in the right middle and lower lobes of the lung. No lung mass or significant consolidation. Pleural spaces: Unremarkable. No pneumothorax. No pleural effusion. Heart: Unremarkable. No cardiomegaly. No pericardial effusion. Mediastinal space: There is subcarinal mediastinal calcification. Lymph nodes: There is right paratracheal mediastinal adenopathy measuring 1.1 cm in short axis diameter (series 3, image 23), AP window mediastinal adenopathy measuring 1.6 cm on image 22, left thoracic hilar adenopathy measuring 1.3 cm on image 23, left thoracic hilar adenopathy measuring 1.2 cm on image 27 and right thoracic hilar adenopathy measuring 1.9 cm on image 28. These are unchanged. No significant new areas of adenopathy. Vasculature: Unremarkable. No aortic aneurysm. Bones/joints: Degenerative change is identified in the spine. There is no evidence for acute fracture or malalignment. Soft tissues: Unremarkable. PROCEDURE INFORMATION: Exam: CT Abdomen And Pelvis With Contrast Exam date and time: 01/30/2024 9:14 AM Age: 63 years old Clinical indication: Condition or disease; Prior surgery; Surgery date: 6+ months; Surgery type: RT leg; Patient HX: B-cell lymphoma chemo ending approx 2018 TECHNIQUE: Imaging protocol: Computed tomography of the abdomen and pelvis with contrast. Radiation optimization: All CT scans at this facility use at least one of these dose optimization techniques: automated exposure control; mA and/or kV adjustment per patient size (includes targeted exams where dose is matched to clinical indication); or iterative reconstruction. Contrast material: OMNI 350; Contrast volume: 95 ml; Contrast route: INTRAVENOUS (IV); COMPARISON: CT chest abdpel w/*[id number] 08/28/2023 12:35 PM RADIATION DOSE METRICS: Total DLP (mGy-cm): 1221.98 FINDINGS: Liver: Normal. No mass. Gallbladder and biliary ducts: Normal. No calcified stones. No ductal dilation. Pancreas: Normal. No ductal dilation. Spleen: Normal. No splenomegaly. Adrenal glands: Normal. No mass. Kidneys and ureters: There is a 6.8 cm cyst in the inferior right kidney. No renal calcification or hydronephrosis. Stomach and bowel: Colonic diverticula are present although there are no CT findings to suggest diverticulitis. No bowel obstruction. Appendix: No evidence of appendicitis. Intraperitoneal space: Unremarkable. No free air. No significant fluid collection. Vasculature: There is vascular atherosclerotic calcification. No aneurysm. Lymph nodes: There are subcentimeter aortocaval retroperitoneal lymph nodes which are unchanged. There is a lymph node along the gastrohepatic ligament with a short axis diameter of 1.6 cm which is unchanged. Urinary bladder: There is mild bladder wall thickening which is unchanged. No bladder emphysema or calcification. Reproductive: Unremarkable as visualized. Bones/joints: Unremarkable. No acute fracture. Soft tissues: Unremarkable. CT/CT chest abdpe w/*[id number] IMPRESSION: There are intrathoracic lymph nodes which are unchanged when compared with 08/28/2023. IMPRESSION: There are lymph nodes along the lesser curvature of the stomach and also in the retroperitoneum which are unchanged when compared with 08/28/2023. COMMENTS: Consistent with the [employer]'s Incidental Findings Committee white paper (J Am Anival Radiol 2018): Any incidental renal lesion less than 1 cm or classified as too small to characterize, or any incidental cystic renal lesion characterized as simple-appearing, is likely benign. No follow-up imaging is recommended for these lesions per consensus recommendations based on imaging criteria.
[2024-01-30 08:27] LABS: Blood Urea Nitrogen 12 mg/dL (8-23)
[2024-01-30] MEDS: iohexol 350 mg/mL 500 mL Btl (per mL) PO (09:19)
[2024-01-30] MEDS: iohexol 350 mg/mL 500 mL Btl (per mL) IV (09:20)
== END 2024-02-08 23:59 | disposition home or self-care (01) ==
LOC: RAD 06:43 → ONCMED 02-24 07:22
PROVIDERS: Internal Medicine Medical Oncology; PCP Nurse Practitioner Family; Visit Provider Nurse Practitioner Family
DX: C85.10 Unspecified B-cell lymphoma, unspecified site (principal); C81.99 Hodgkin lymphoma, unspecified, extranodal and solid organ sites
CPT/HCPCS: 36415; 71260; 74177; 82565; 84520; Q9967

== ENCOUNTER 2024-04-02 07:29 | Oncology outpatient (recurring) (ONCR) | payer MEDICARE, SELFPAY ==
[2024-04-02 07:58] LABS: Basophils % 0.6 %; Eosinophils # 0.1 10^3/uL (0.0-0.8); Eosinophils % 1.8 %; Hematocrit 42.5 % (37-53); Lymphocytes # 1.5 10^3/uL (0.8-4.8); Lymphocytes % 30.3 %; Mean Corpuscular HGB Conc 35.1 g/dL (30-55); Mean Corpuscular Hemoglobin 30.3 pg (27-33); Mean Corpuscular Volume 86.6 fl (82-101); Mean Platelet Volume 9.1 fL (7.4-10.4); Monocytes # 0.4 10^3/uL (0.2-0.9); Monocytes % 7.9 %; Neutrophils # 2.99 10^3/uL (1.8-7.7); Neutrophils % 59.2 %; Nucleated Red Blood Cells % 0 %; Platelet Count 150 10^3/cmm (157-399); Red Blood Count 4.91 10^6/uL (3.85-5.65); Red Cell Distribution Width 12.7 % (12.1-15.1); White Blood Count 5.05 10^3/uL (3.29-11.43)
[2024-04-02 08:32] LABS: Alanine Aminotransferase 29 U/L (0-41); Albumin Level 4.4 g/dL (3.5-5.2); Alkaline Phosphatase 107 U/L (40-130); Anion Gap 14.9 (5-19); Aspartate Amino Transferase 24 U/L (0-40); Blood Urea Nitrogen 17 mg/dL (8-23); Calcium 8.8 mg/dL (8.5-10.5); Carbon Dioxide 22 mmol/L (22-29); Chloride 107 mmol/L (98-107); Globulin 1.8 g/dL (1.3-4.6); Glomerular Filtration Rate 50.9 mL/min (90-130); Glucose 133 mg/dL (65-115); Lactate Dehydrogenase 177 U/L (135-225); Osmolality Calculated 293 mOsm/kg (285-295); Potassium 3.9 mmol/L (3.5-5.1); Sodium 140 mmol/L (136-145); Total Bilirubin 0.4 mg/dL (0.15-1.2); Total Protein 6.2 g/dL (6.6-8.7)
== END 2024-04-10 23:55 | disposition home or self-care (01) ==
PROVIDERS: PCP Nurse Practitioner Family; Visit Provider Nurse Practitioner Family
DX: C85.80 Other specified types of non-Hodgkin lymphoma, unspecified site (principal)
CPT/HCPCS: 36415; 80053; 83615; 85025; 99214

== ENCOUNTER 2024-08-02 10:13 | Outpatient (CLI) | payer MEDICARE, SELFPAY ==
[2024-08-02] MEDS: iohexol 350 mg/mL 500 mL Btl (per mL) PO (11:24)
[2024-08-02 11:32] LABS: Blood Urea Nitrogen 14 mg/dL (8-23); Glomerular Filtration Rate 60.8 mL/min (90-130)
[2024-08-02] MEDS: iohexol 350 mg/mL 500 mL Btl (per mL) IV (11:37)
--- NOTE | 2024-08-02 12:00 | CTR_ITS ---
PROCEDURE INFORMATION: Exam: CT Chest With Contrast; Diagnostic Exam date and time: 08/02/2024 11:30 AM Age: 64 years old Clinical indication: Condition or disease; Other: Non hodgkin's lymphoma; Additional info: Surveillance TECHNIQUE: Imaging protocol: Diagnostic computed tomography of the chest with contrast. Radiation optimization: All CT scans at this facility use at least one of these dose optimization techniques: automated exposure control; mA and/or kV adjustment per patient size (includes targeted exams where dose is matched to clinical indication); or iterative reconstruction. Contrast material: OMNI 350; Contrast volume: 100 ml; Contrast route: INTRAVENOUS (IV); COMPARISON: CT chest abdpel w/*[id number] 01/30/2024 9:14 AM RADIATION DOSE METRICS: Total DLP (mGy-cm): 1293.38 FINDINGS: Thyroid: No significant thyroid pathology. Lungs: Stable focal area of reticulation in the right upper lobe on series 4, image 42 most likely representing postinflammatory scarring. Calcified pulmonary granulomata again seen. Interval appearance of a new right lower lobe nodule measuring 8 mm with a surrounding rim of ground-glass opacity on series 4, image 35. Pleural spaces: No pleural effusion. Heart: Unremarkable. No cardiomegaly. No pericardial effusion. Coronary arteries: No coronary artery calcification evident. Lymph nodes: Stable appearance of mild mediastinal lymphadenopathy. Example is an AP window lymph node on series 3, image 22 measuring 1.5 cm short axis. Right hilar nodes measure up to 1.7 cm short axis. And left hilar nodes measures 1.4 cm short axis, also unchanged. No axillary adenopathy. Vasculature: Unchanged dilated aortic root measuring 4.4 cm as measured on series 7, image 37. Mid ascending thoracic aorta measures 4.0 cm. Bones/joints: No significant bony pathology. Soft tissues: Unremarkable. PROCEDURE INFORMATION: Exam: CT Abdomen And Pelvis With Contrast Exam date and time: 08/02/2024 11:30 AM Age: 64 years old Clinical indication: Condition or disease; Other: Non hodgkin's lymphoma; Additional info: Surveillance TECHNIQUE: Imaging protocol: Computed tomography of the abdomen and pelvis with contrast. Radiation optimization: All CT scans at this facility use at least one of these dose optimization techniques: automated exposure control; mA and/or kV adjustment per patient size (includes targeted exams where dose is matched to clinical indication); or iterative reconstruction. Contrast material: OMNI 350; Contrast volume: 100 ml; Contrast route: INTRAVENOUS (IV); COMPARISON: CT chest abdpel w/*[id number] 01/30/2024 9:14 AM RADIATION DOSE METRICS: Total DLP (mGy-cm): 1293.38 FINDINGS: Lungs: Visualized lung bases are free of significant pathology. Liver: No significant liver pathology. Gallbladder and biliary ducts: No significant gallbladder pathology. No biliary dilatation. Pancreas: No significant pancreatic pathology. Spleen: No significant splenic pathology. Adrenal glands: No significant adrenal pathology. Kidneys and ureters: There are renal cortical cysts and subcentimeter cortical hypodensities which are indeterminate by criteria but statistically most likely represent cysts. Stomach and bowel: Colonic diverticulosis without evidence of focal inflammatory change. Moderate amount of colonic stool. Appendix: No appendiceal pathology evident. Intraperitoneal space: No ascites or free air. Vasculature: No abdominal aortic aneurysm. Lymph nodes: Stable gastrohepatic ligament lymphadenopathy measuring 1.6 cm short axis again seen. Stable portacaval adenopathy measuring 1.7 cm short axis. Urinary bladder: Bladder wall appears thickened although this is accentuated by incomplete distention. Reproductive: Prostate is mildly enlarged. Bones/joints: Stable nonspecific scattered sclerotic skeletal foci (example proximal right femur series 5, image 90, left sacrum series 5, image 64, etc.). Soft tissues: Small fat containing left inguinal hernia. CT/CT chest abdpel w/*[id number] IMPRESSION: 1. Stable mild mediastinal and bilateral hilar adenopathy. 2. New 8 mm right lower lobe nodule with surrounding ground-glass opacity. Although the appearance raises possibility of inflammatory disease, other pathology including neoplasm is included in the differential diagnosis. Three-month follow-up and/or PET scan could be performed further assessment. IMPRESSION: 1. Stable mild upper abdominal adenopathy. 2. Stable minor findings described above. COMMENTS: Consistent with the [employer]'s Incidental Findings Committee white paper (J Am Anival Radiol 2018): Any incidental renal lesion less than 1 cm or classified as too small to characterize, or any incidental cystic renal lesion characterized as simple-appearing, is likely benign. No follow-up imaging is recommended for these lesions per consensus recommendations based on imaging criteria.
== END 2024-08-02 10:14 | disposition home or self-care (01) ==
LOC: RAD 10:14
PROVIDERS: PCP Nurse Practitioner Family; Visit Provider Nurse Practitioner Family
DX: C85.80 Other specified types of non-Hodgkin lymphoma, unspecified site (principal); R91.1 Solitary pulmonary nodule; J84.10 Pulmonary fibrosis, unspecified; Q61.02 Congenital multiple renal cysts; K57.90 Diverticulosis of intestine, part unspecified, without perforation or abscess without bleeding; I89.9 Noninfective disorder of lymphatic vessels and lymph nodes, unspecified; R93.7 Abnormal findings on diagnostic imaging of other parts of musculoskeletal system
CPT/HCPCS: 71260; 74177; 82565; 84520